=== PATIENT | female | born 1995 | race Two or more races ===

== ENCOUNTER 2017-06-20 09:16 | Emergency (ER) | payer OTHER ==
[2017-06-20 09:21] VITALS: BMI 31.3
--- NOTE | 2017-06-20 09:40 | PDOC ---
History of Present Illness - General Chief Complaint: Vaginal Bleeding Stated Complaint: vaginal bleeding, abd pain Time Seen by Provider: 06/20/17 09:35 - History of Present Illness Initial Comments: 06/20/17 09:40 21 y/o A1 L4 (with 4 c-sections, o+, rubella immune,) presents with profuse vaginal bleeding since this morning 5am, and 7/10 suprapubic pain radiating through to her back, LMP 6 days ago., started on 06/09 to 06/14. Sexually active, no conctraceptives or protection. No other complaints. Past History - Past Medical History Allergies/Adverse Reactions: Allergies Allergy/AdvReac Type Severity Reaction Status Date / Time No Known Allergies Allergy Verified 06/20/17 09:21 Home Medications: Ambulatory Orders NK [No Known Home Medication] 06/20/17 Asthma: No Cancer: No Cardiac Disorders: No COPD: No Diabetes: No HTN: No Seizures: No Thyroid Disease: No Other medical history: denies - Reproductive History Cervical CA: No Dysfunctional Uterine Bleeding: No Ectopic : No Endometrial CA: No Polycystic Ovaries: No Tubal Ligation: No - Immunization History Immunization Up to Date: Yes - Suicide/Smoking/Psychosocial Hx Smoking History: Never smoked Have you smoked in the past 12 months: No Number of Cigarettes Smoked Daily: 0 Cigars Per Day: 0 Information on smoking cessation initiated: No Hx Alcohol Use: No Drug/Substance Use Hx: No Substance Use Type: None Hx Substance Use Treatment: No Review of Systems - Review of Systems Able to Perform ROS?: Yes Is the patient limited German proficient: Yes Constitutional: No: Symptoms Reported HEENTM: No: Symptoms Reported Respiratory: No: Symptoms reported Cardiac (ROS): No: Symptoms Reported ABD/GI: Yes: See HPI : Yes: See HPI Musculoskeletal: No: Symptoms Reported Integumentary: No: Symptoms Reported Neurological: No: Symptoms reported All Other Systems: Reviewed and Negative *Physical Exam - Vital Signs Last Vital Signs Temp Pulse Resp BP Pulse Ox 98.1 F 74 18 128/76 100 06/20/17 09:19 06/20/17 09:19 06/20/17 09:19 06/20/17 09:19 06/20/17 09:19 - Physical Exam General Appearance: Yes: Nourished, Appropriately Dressed, Mild Distress HEENT: positive: EOMI, ANSON, Normal ENT Inspection Neck: negative: Tender Respiratory/Chest: positive: Lungs Clear, Normal Breath Sounds. negative: Chest Tender, Respiratory Distress Cardiovascular: positive: Regular Rhythm, Regular Rate, S1, S2 Female Pelvic Exam: positive: cervical os closed, vaginal bleeding (heavy bleeding, large clot about 0qqd2kg, vaginal cavity completely filled with hernan blood, cervix closed) Gastrointestinal/Abdominal: positive: Normal Bowel Sounds. negative: Tender Musculoskeletal: positive: Normal Inspection. negative: CVA Tenderness Integumentary: positive: Normal Color, Dry, Warm. negative: Cyanotic, Erythema , Pale, Cold, Clammy Neurologic: positive: remelt furnace expediter II-XII NML intact, Fully Oriented, Alert, Normal Mood/ Affect ED Treatment Course - LABORATORY CBC & Chemistry Diagram: 06/20/17 14:11 06/20/17 10:00 Medical Decision Making - Medical Decision Making 06/20/17 12:59 Pelvic exam reveal closed os with large quantities of blood. TVUS reveals empty uterus. 06/20/17 13:37 Patient reevaluated, unchanged pain and volume of bleeding. Repeat CBC. 06/20/17 15:24 CBC marginally decreased. Patient however still bleeding abundantly Dr Mancini will evaluate the patient in the ED 06/20/17 16:53 Dr. Mancini saw the patient and performed pelvic exam. Patient ok to be discharged but will come back in two days for follow up. *DC/Admit/Observation/Transfer Diagnosis at time of Disposition: Vaginal bleeding, Complete with delayed or excessive hemorrhage - Discharge Dispostion Disposition: HOME Condition at time of disposition: Improved Admit: No - Referrals Referrals: Janet Mancini MD [Staff Physician] - - Patient Instructions Printed Discharge Instructions: DI for Vaginal Bleeding, DI for Vaginal Bleeding During Additional Instructions: Come back to the ER in 2 days for follow up. Come sooner for any new, worsening or concerning symptoms. - Post Discharge Activity
[2017-06-20 10:06] LABS: BASOPHIL 1.1 % (0-2.0); EOSINOPHIL 6.8 % (0-4.5); MCH 24.5 pg (25.7-33.7); MCHC 32.3 g/dl (32.0-36.0); NEUTROPHILS 44.3 % (42.8-82.8); PLATELET COUNT 300 K/MM3 (134-434); RDW 17.4 % (11.6-15.6); WHITE BLOOD COUNT 6.4 K/mm3 (4.0-10.0)
[2017-06-20 10:22] LABS: INR 1.11 (0.82-1.09); PROTHROMBIN TIME (PATIENT) 12.5 SEC (9.98-11.88)
[2017-06-20 10:48] LABS: ALBUMIN 3.7 g/dl (3.4-5.0); ANION GAP 9 (8-16); CALCIUM 8.5 mg/dL (8.5-10.1); CO2 26 mmol/L (21-32); CREATININE 0.6 mg/dL (0.55-1.02); GLUCOSE,RANDOM 97 mg/dL (74-106); SGOT/AST 88 U/L (15-37); SGPT/ALT 126 U/L (12-78)
[2017-06-20 11:05] LABS: ALK PHOS 79 U/L (45-117); BILIRUBIN,TOTAL 0.3 mg/dL (0.2-1.0); TOT PROT 7.7 g/dl (6.4-8.2)
--- NOTE | 2017-06-20 11:17 | PDOC ---
Attending Attestation - HPI HPI: 06/20/17 11:24 21 year old female , with no significant past medical history, who presents to the emergency room today with 1 week of vaginal spotting and subprapubic tenderness. - Physicial Exam PE: 06/20/17 11:24 GENERAL: Awake, alert, and fully oriented, in no acute distress HEAD: No signs of trauma EYES: PERRLA, EOMI, sclera anicteric, conjunctiva clear ENT: Auricles normal inspection, hearing grossly normal, nares patent, oropharynx clear without exudates. Moist mucosa NECK: Normal ROM, supple, no lymphadenopathy, JVD, or masses LUNGS: Breath sounds equal, clear to auscultation bilaterally. No wheezes, and no crackles HEART: Regular rate and rhythm, normal S1 and S2, no murmurs, rubs or gallops ABDOMEN: +suprapubic tenderness to palpation. Soft, normoactive bowel sounds. No guarding, no rebound. No masses MECHANIC INSULATOR: As per resident note EXTREMITIES: Normal range of motion, no edema. No clubbing or cyanosis. No cords, erythema, or tenderness NEUROLOGICAL: Cranial nerves II through XII grossly intact. Normal speech, normal gait SKIN: Warm, Dry, normal turgor, no rashes or lesions noted. <Christina Finley - Last Filed: 06/20/17 11:24> - Resident Resident Name: Leif Graham - ED Attending Attestation I have performed the following: I have examined & evaluated the patient, The case was reviewed & discussed with the resident, I agree w/resident's findings & plan, Exceptions are as noted - Medical Decision Making 06/20/17 11:09 Vital Signs Temp Pulse Resp BP Pulse Ox 98.1 F 74 18 128/76 100 06/20/17 09:19 06/20/17 09:19 06/20/17 09:19 06/20/17 09:19 06/20/17 09:19 21-year-old female patient with no past medical history, , with irregular periods presents with vaginal bleeding. Patient reported one week ago having vaginal spotting. She thought this was her period but noticed that she had bleeding with clots today. And eyes lightheadedness but reports some suprapubic and lower back discomfort. Denies dysuria. Denies fevers or chills. We'll need to rule out first trimester vaginal bleeding such as ectopic versus threatened . We'll obtain a transvaginal ultrasound labs including hCG and type and screen. 06/20/17 13:14 CBC, BMP 06/20/17 10:00 06/20/17 10:00 CMP Sodium 139 mmol/L (136-145) 06/20/17 10:00 Potassium 3.7 mmol/L (3.5-5.1) 06/20/17 10:00 Chloride 104 mmol/L (98-107) 06/20/17 10:00 Carbon Dioxide 26 mmol/L (21-32) 06/20/17 10:00 Anion Gap 9 (8-16) 06/20/17 10:00 BUN 5 mg/dL (7-18) L D 06/20/17 10:00 Creatinine 0.6 mg/dL (0.55-1.02) D 06/20/17 10:00 Creat Clearance w eGFR > 60 (>60) 06/20/17 10:00 Random Glucose 97 mg/dL (74-106) 06/20/17 10:00 Calcium 8.5 mg/dL (8.5-10.1) 06/20/17 10:00 Total Bilirubin 0.3 mg/dL (0.2-1.0) D 06/20/17 10:00 AST 88 U/L (15-37) H D 06/20/17 10:00 ALT 126 U/L (12-78) H D 06/20/17 10:00 Alkaline Phosphatase 79 U/L (45-117) D 06/20/17 10:00 Total Protein 7.7 g/dl (6.4-8.2) D 06/20/17 10:00 Albumin 3.7 g/dl (3.4-5.0) D 06/20/17 10:00 Beta HCG, Quant 2793.3 mIU/ml 06/20/17 10:00 O positive. Retroflexed uterus with normal thickness of the endometrial stripe. No intrauterine gestational sac is identified. Tiny anechoic/cystic density at the junction of the lower uterine segment and cervix, measuring 6 x 4 mm likely representing a nabothian cysts. Both ovaries appear unremarkable. No IUP noted. Will need to consider either missed vs. ectopic . Pt is continuing to bleed vaginally. Will need to repeat CBC. If patient continues to bleed and/or has drop in Hct, will need to consult GAME ENGINEER for potential D&C. If the bleeding stops and the CBC is stable, pt must return to her GAME ENGINEER or to the ER in 2 days for repeat beta HCG and ultrasound. 06/20/17 15:17 Hct stable, but pt with persistent bleeding. Case discussed with DR. Shields. She will come and see and examine patient. Dispo per Dr. Shields. 06/20/17 16:25 Pt seen and examined by DR. Shields. The bleeding had slowed down significantly. Pt reports feeling better. Dr. Shields requests that she returns back in 2 days for repeat beta HCG and ultrasound. Pt instructed these instructions and she will return back to the ED. <Boris Musa - Last Filed: 06/20/17 16:25>
[2017-06-20 13:31] LABS: EOSINOPHIL 1.8 % (0-4.5); MCH 29.5 pg (25.7-33.7); MCHC 33.3 g/dl (32.0-36.0); MEAN CELL VOLUME 88.5 fl (80-96); MEAN PLT VOLUME 8.5 fl (7.5-11.1); PLATELET COUNT 283 K/MM3 (134-434); RDW 14.4 % (11.6-15.6)
[2017-06-20 13:36] LABS: URINE APPEARANCE CLOUDY; URINE BILIRUBIN NEGATIVE (NEGATIVE); URINE BLOOD 3+ (NEGATIVE); URINE COLOR RED; URINE GLUCOSE (UA) 1+ (NEGATIVE); URINE KETONE NEGATIVE (NEGATIVE); URINE NITRITE NEGATIVE (NEGATIVE); URINE UROBILINOGEN NEGATIVE mg/dL (0.2-1.0)
[2017-06-20 13:49] LABS: URINE PROTEIN 3+ (NEGATIVE)
[2017-06-20 13:54] LABS: URINE MUCUS MODERATE; URINE RBC 8640 /hpf (0-3)
[2017-06-20 14:13] LABS: WHITE BLOOD COUNT 6.3 K/mm3 (4.0-10.0)
[2017-06-20 14:14] LABS: MCH 24.1 pg (25.7-33.7); MCHC 31.8 g/dl (32.0-36.0); MEAN CELL VOLUME 75.8 fl (80-96); MEAN PLT VOLUME 8.4 fl (7.5-11.1); NEUTROPHILS 47.8 % (42.8-82.8); PLATELET COUNT 285 K/MM3 (134-434); RDW 17.3 % (11.6-15.6)
[2017-06-20 14:15] LABS: BASOPHIL 1.1 % (0-2.0); EOSINOPHIL 6.6 % (0-4.5)
[2017-06-20 17:03] VITALS: BP 113/70; PULSE 77; TEMP 98.3
[2017-06-20 18:09] LABS: URINE LEUK ESTERASE Negative (NEGATIVE)
== END 2017-06-20 17:22 | disposition home or self-care (01) ==
LOC: JER 09:16
DX: O03.6 Delayed or excessive hemorrhage following complete or unspecified spontaneous abortion (principal)
CPT/HCPCS: 36415; 76830-TC; 80053; 81003; 81015; 84702; 84703; 85025; 85610; 85730; 86850; 86900; 86901; 99283-25

== ENCOUNTER 2017-06-23 10:22 | Emergency (ER) | payer OTHER ==
[2017-06-23 10:35] VITALS: BP 118/84; PULSE 91; TEMP 98.2; BMI 26.2
--- NOTE | 2017-06-23 14:21 | PDOC ---
History of Present Illness - General Chief Complaint: [facility] [place] St[place] Complaint: Beta HCG Time Seen by Provider: 06/23/17 10:52 History Source: Patient Exam Limitations: No Limitations - History of Present Illness Initial Comments: 06/23/17 14:15 21 yr female LMP 06/09/17 came to ER with cramping and vaginal bleeding 2 days ago dx with missed AB. Pt here today for repeat beta and follow up. Pt states the bleeding is less, no more clots, has mild cramping, no nv no back pain or fever. Severity: mild Past History - Past Medical History Allergies/Adverse Reactions: Allergies Allergy/AdvReac Type Severity Reaction Status Date / Time No Known Allergies Allergy Verified 06/23/17 10:34 Home Medications: Ambulatory Orders NK [No Known Home Medication] 06/20/17 Asthma: No Cancer: No Cardiac Disorders: No COPD: No Diabetes: No HTN: No Seizures: No Thyroid Disease: No - Reproductive History LMP Normal: No Is Patient Now?: Yes (#): 5 Para: 4 Cervical CA: No Dysfunctional Uterine Bleeding: No Ectopic : No Endometrial CA: No Polycystic Ovaries: No Tubal Ligation: No - Immunization History Immunization Up to Date: Yes - Suicide/Smoking/Psychosocial Hx Smoking History: Never smoked Have you smoked in the past 12 months: No Number of Cigarettes Smoked Daily: 0 Cigars Per Day: 0 Information on smoking cessation initiated: No Hx Alcohol Use: No Drug/Substance Use Hx: No Substance Use Type: None Hx Substance Use Treatment: No Review of Systems - Review of Systems Able to Perform ROS?: Yes Is the patient limited Kyrgyz proficient: No Constitutional: No: Symptoms Reported HEENTM: No: Symptoms Reported Respiratory: No: Symptoms reported Cardiac (ROS): No: Symptoms Reported ABD/GI: No: Symptoms Reported : Yes: Symptoms Reported *Physical Exam - Vital Signs Last Vital Signs Temp Pulse Resp BP Pulse Ox 98.2 F 91 H 18 118/84 100 06/23/17 10:25 06/23/17 10:25 06/23/17 10:25 06/23/17 10:25 06/23/17 10:25 - Physical Exam General Appearance: Yes: Nourished, Appropriately Dressed HEENT: positive: EOMI, ANSON Neck: positive: Supple Respiratory/Chest: positive: Lungs Clear, Normal Breath Sounds Cardiovascular: positive: Regular Rhythm, Regular Rate Gastrointestinal/Abdominal: positive: Normal Bowel Sounds, Soft, Tenderness ( mild suprapubic tenderness ). negative: Tender Extremity: positive: Normal Capillary Refill, Normal Inspection, Normal Range of Motion Integumentary: positive: Normal Color, Dry, Warm Neurologic: positive: Fully Oriented, Alert, Normal Mood/Affect, Normal Response , Motor Strength 11/26 ED Treatment Course - LABORATORY CBC & Chemistry Diagram: 06/23/17 14:55 06/23/17 14:55 - ADDITIONAL ORDERS Additional order review: Laboratory Results 06/23/17 10:52 Beta HCG, Quant 9043.7 - RADIOLOGY Radiology Studies Ordered: Category Date Time Status TRANSVAGINAL US PREG [US] Stat Ultrasound 06/23/17 11:53 Completed - Consult/PCP Case discussed with personal care physician: Colby Berger Medical Decision Making - Medical Decision Making 06/23/17 14:18 cc: vaginal bleeding mild cramping seen in ER 06/20/17 for evaluation of cramping and vaginal bleeding with clots, pt was found to be US showed no IUP pt here for follow up states bleeding has improved , has mild cramping will repeat labs and US type and screen 06/23/17 14:19 paged to discuss the results 06/23/17 14:40 discussed case with would like blood work repeated and labs \will follow the repeat labwork and plan accordingly 06/23/17 16:20 is reviewing the US with and will call me back labs reviewed as well 06/23/17 18:12 seen and examined in the ER by pt to be discharge and seen in the clinic on Tuesday06/23/17 18:15 pt has been given the dc instructions all questions asked and answered pt understands via japanese translation the follow up plan of care *DC/Admit/Observation/Transfer Diagnosis at time of Disposition: Threatened - Discharge Dispostion Disposition: HOME Condition at time of disposition: Good - Referrals Referrals: Colby Berger MD [Staff Physician] - - Patient Instructions Additional Instructions: follow up TuesdayJune 27 in the clinic listed below bring copies of your tests done today with you avoid any sexual activity any heavy lifting or bending return to ER for any severe pain, heavy vaginal bleeding or any other concerns seguimiento el LUNES 4 de diciembre en la clnica que se detalla a continuacin traiga copias de shelley pruebas hechas hoy con usted evitar cualquier actividad sexual, levantar objetos pesados o doblarse regresar a la rangel de emergencias por cualquier dolor intenso, hemorragia vaginal abundante o cualquier otra inquietud - Post Discharge Activity
[2017-06-23 15:03] LABS: BASOPHIL 0.8 % (0-2.0); EOSINOPHIL 4.8 % (0-4.5); MCH 24.6 pg (25.7-33.7); MCHC 32.3 g/dl (32.0-36.0); MEAN CELL VOLUME 76.2 fl (80-96); MEAN PLT VOLUME 8.6 fl (7.5-11.1); NEUTROPHILS 52.6 % (42.8-82.8); PLATELET COUNT 258 K/MM3 (134-434); RDW 17.1 % (11.6-15.6); WHITE BLOOD COUNT 6.1 K/mm3 (4.0-10.0)
[2017-06-23 15:13] LABS: INR 1.16 (0.82-1.09); PROTHROMBIN TIME (PATIENT) 13.1 SEC (9.98-11.88)
[2017-06-23 15:16] LABS: ACTIVATED PTT 28.4 SECONDS (26.9-34.4)
[2017-06-23 15:23] LABS: ALBUMIN 3.4 g/dl (3.4-5.0); ANION GAP 6 (8-16); CALCIUM 8.1 mg/dL (8.5-10.1); CO2 25 mmol/L (21-32); GLUCOSE,RANDOM 102 mg/dL (74-106)
[2017-06-23 15:25] LABS: CREATININE 0.5 mg/dL (0.55-1.02); SGOT/AST 93 U/L (15-37); SGPT/ALT 155 U/L (12-78)
[2017-06-23 15:27] LABS: ALK PHOS 66 U/L (45-117); BILIRUBIN,TOTAL 0.4 mg/dL (0.2-1.0); TOT PROT 7.4 g/dl (6.4-8.2)
== END 2017-06-23 18:21 | disposition home or self-care (01) ==
LOC: JERFT 10:22
DX: O26.891 Other specified pregnancy related conditions, first trimester (principal); O20.0 Threatened abortion; Z3A.00 Weeks of gestation of pregnancy not specified
CPT/HCPCS: 36415; 76817-TC; 80053; 84702; 85025; 85610; 85730; 86850; 86900; 86901; 99281-25

== ENCOUNTER 2017-07-04 20:48 | Emergency (ER) | payer OTHER ==
--- NOTE | 2017-07-04 20:54 | PDOC ---
Rapid Medical Evaluation Chief Complaint: Vaginal Bleeding Time Seen by Provider: 07/04/17 20:51 Medical Evaluation: Allergies Allergy/AdvReac Type Severity Reaction Status Date / Time No Known Allergies Allergy Verified 06/23/17 10:34 07/04/17 20:51 The patient presents with a chief complaint of: vaginal bleeding x1 day. 2016: LMP + urine test in this ER. minimal vaginal bleeding I have performed a brief in-person evaluation of this patient; Pertinent physical exam findings: Patient alert ox3. good cap refill. I have ordered the following: beta hcg, cbc, type and screen The patient will proceed to the ED for further evaluation. 07/04/17 20:54
[2017-07-04 20:55] VITALS: BP 109/70; PULSE 81; TEMP 98.7; BMI 29.9
[2017-07-04 21:11] LABS: BASOPHIL 0.8 % (0-2.0); EOSINOPHIL 5.7 % (0-4.5); MCH 23.4 pg (25.7-33.7); MCHC 31.4 g/dl (32.0-36.0); MEAN CELL VOLUME 74.7 fl (80-96); MEAN PLT VOLUME 8.5 fl (7.5-11.1); NEUTROPHILS 51.2 % (42.8-82.8); PLATELET COUNT 300 K/MM3 (134-434); RDW 16.9 % (11.6-15.6); WHITE BLOOD COUNT 6.9 K/mm3 (4.0-10.0)
[2017-07-04 21:13] LABS: URINE APPEARANCE CLEAR; URINE BILIRUBIN NEGATIVE (NEGATIVE); URINE BLOOD 3+ (NEGATIVE); URINE COLOR STRAW; URINE GLUCOSE (UA) NEGATIVE (NEGATIVE); URINE KETONE NEGATIVE (NEGATIVE); URINE LEUK ESTERASE NEGATIVE (NEGATIVE); URINE NITRITE NEGATIVE (NEGATIVE); URINE PROTEIN NEGATIVE (NEGATIVE); URINE UROBILINOGEN NEGATIVE mg/dL (0.2-1.0)
[2017-07-04 21:16] LABS: URINE RBC 2 /hpf (0-3); URINE WBC 1 /hpf (3-5)
[2017-07-04 21:32] LABS: INR 1.19 (0.82-1.09); PROTHROMBIN TIME (PATIENT) 13.4 SEC (9.98-11.88)
[2017-07-04 23:05] LABS: URINE LEUK ESTERASE NEGATIVE (NEGATIVE)
--- NOTE | 2017-07-05 00:11 | PDOC ---
History of Present Illness <Terri Paul - Last Filed: 07/05/17 00:13> - History of Present Illness Initial Comments: 07/05/17 00:15 The patient is a 21 year old female, , with no significant past medical history, who presents to the emergency department with persistent vaginal bleeding. The patient was seen in the ED for similar complaint 2 weeks ago. The patient states her LMP was in April and presents for a repeat beta. She denies chest pain, shortness of breath, headache and dizziness. She denies fever, chills, nausea, vomit, diarrhea and constipation. She denies dysuria, frequency, urgency and hematuria. Allergies: NKDA The patient follows the [facility] at [address] [place] [address]. <Patricia Morfin - Last Filed: 07/05/17 00:22> - General Chief Complaint: Vaginal Bleeding Stated Complaint: VAGINAL BLEEDING Time Seen by Provider: 07/04/17 20:51 Past History - Past Medical History Asthma: No Cancer: No Cardiac Disorders: No COPD: No Diabetes: No HTN: No Seizures: No Thyroid Disease: No - Reproductive History (#): 5 Para: 4 Cervical CA: No Dysfunctional Uterine Bleeding: No Ectopic : No Endometrial CA: No Polycystic Ovaries: No Tubal Ligation: No - Immunization History Immunization Up to Date: Yes - Suicide/Smoking/Psychosocial Hx Smoking History: Never smoked Have you smoked in the past 12 months: No Number of Cigarettes Smoked Daily: 0 Cigars Per Day: 0 Hx Alcohol Use: No Drug/Substance Use Hx: No Substance Use Type: None Hx Substance Use Treatment: No <Terri Paul - Last Filed: 07/05/17 00:13> <Patricia Morfin - Last Filed: 07/05/17 00:22> - Past Medical History Allergies/Adverse Reactions: Allergies Allergy/AdvReac Type Severity Reaction Status Date / Time No Known Allergies Allergy Verified 07/04/17 20:55 Home Medications: Ambulatory Orders NK [No Known Home Medication] 06/20/17 Review of Systems - Review of Systems Able to Perform ROS?: Yes Comments:: 07/05/17 00:17 CONSTITUTIONAL: Absent: fever, chills, diaphoresis, generalized weakness, malaise, loss of appetite HEENT: Absent: rhinorrhea, nasal congestion, throat pain, throat swelling, difficulty swallowing, mouth swelling, ear pain, eye pain, visual Changes CARDIOVASCULAR: Absent: chest pain, syncope, palpitations, irregular heart rate, lightheadedness , peripheral edema RESPIRATORY: Absent: cough, shortness of breath, dyspnea with exertion, orthopnea, wheezing, stridor, hemoptysis GASTROINTESTINAL: Absent: abdominal pain, abdominal distension, nausea, vomiting, diarrhea, constipation, melena, hematochezia GENITOURINARY: (+) vaginal bleeding in . Absent: dysuria, frequency, urgency, hesitancy, hematuria, flank pain, genital pain MUSCULOSKELETAL: Absent: myalgia, arthralgia, joint swelling SKIN: Absent: rash, itching, pallor HEMATOLOGIC/IMMUNOLOGIC: Absent: easy bleeding, easy bruising, lymphadenopathy, frequent infections ENDOCRINE: Absent: unexplained weight gain, unexplained weight loss, heat intolerance, cold intolerance NEUROLOGIC: Absent: headache, focal weakness or paresthesias, dizziness, unsteady gait, seizure, mental status changes, bladder or bowel incontinence PSYCHIATRIC: Absent: anxiety, depression, suicidal or homicidal ideation, hallucinations. <Patricia Morfin - Last Filed: 07/05/17 00:22> *Physical Exam - Vital Signs Last Vital Signs Temp Pulse Resp BP Pulse Ox 98.7 F 81 18 109/70 100 07/04/17 20:51 07/04/17 20:51 07/04/17 20:51 07/04/17 20:51 07/04/17 20:51 <Terri Paul - Last Filed: 07/05/17 00:13> - Vital Signs Last Vital Signs Temp Pulse Resp BP Pulse Ox 98.7 F 81 18 109/70 100 07/04/17 20:51 07/04/17 20:51 07/04/17 20:51 07/04/17 20:51 07/04/17 20:51 - Physical Exam Comments: 07/05/17 00:17 GENERAL: Well developed, well nourished. Awake and alert. No acute distress. HEENT: Normocephalic, atraumatic. PERRLA, EOMI. No conjunctival pallor. Sclera are non- icteric. Moist mucous membranes. Oropharynx is clear. NECK: Supple. Full ROM. No JVD. Carotid pulses 2+ and symmetric, without bruits. No thyromegaly. No lymphadenopathy. CARDIOVASCULAR: Regular rate and rhythm. No murmurs, rubs, or gallops. Distal pulses are 2+ and symmetric. PULMONARY: No evidence of respiratory distress. Lungs clear to auscultation bilaterally. No wheezing, rales or rhonchi. ABDOMINAL: Soft. Non-tender. Non-distended. No rebound or guarding. No organomegaly. Normoactive bowel sounds. MUSCULOSKELETAL Normal range of motion at all joints. No bony deformities or tenderness. No CVA tenderness. EXTREMITIES: No cyanosis. No clubbing. No edema. No calf tenderness. SKIN: Warm and dry. Normal capillary refill. No rashes. No jaundice. NEUROLOGICAL: Alert, awake, appropriate. Cranial nerves 2-12 intact. Normoreflexic in the upper and lower extremities. Normal speech. Toes are down-going bilaterally. Gait is normal without ataxia. PSYCHIATRIC: Cooperative. Good eye contact. Appropriate mood and affect. <Patricia Morfin - Last Filed: 07/05/17 00:22> ED Treatment Course - LABORATORY CBC & Chemistry Diagram: 07/04/17 20:55 - ADDITIONAL ORDERS Additional order review: Laboratory Results 07/04/17 07/04/17 07/04/17 20:55 20:55 20:55 PT with INR INR Beta HCG, Quant 68433.6 Urine Color Straw Urine Appearance Clear Urine pH 6.0 Ur Specific [place] 1.003 Urine Protein Negative Urine Glucose (UA) Negative Urine Ketones Negative Urine Blood 3+ H Urine Nitrite Negative Urine Bilirubin Negative Urine Urobilinogen Negative Ur Leukocyte Esterase Negative Urine WBC (Auto) 1 Urine RBC (Auto) 2 Ur Epithelial Cells Rare Blood Type O POSITIVE Antibody Screen Negative 07/04/17 20:55 PT with INR 13.40 H INR 1.19 H Beta HCG, Quant Urine Color Urine Appearance Urine pH Ur Specific [place] Urine Protein Urine Glucose (UA) Urine Ketones Urine Blood Urine Nitrite Urine Bilirubin Urine Urobilinogen Ur Leukocyte Esterase Urine WBC (Auto) Urine RBC (Auto) Ur Epithelial Cells Blood Type Antibody Screen 07/04/17 20:55 RBC 3.98 MCV 74.7 L MCHC 31.4 L RDW 16.9 H MPV 8.5 Neutrophils % 51.2 Lymphocytes % 35.8 Monocytes % 6.5 Eosinophils % 5.7 H Basophils % 0.8 - RADIOLOGY Radiology Studies Ordered: Category Date Time Status <14WKS US [US] Stat Ultrasound 07/04/17 22:29 Completed <Terri Paul - Last Filed: 07/05/17 00:13> - LABORATORY CBC & Chemistry Diagram: 07/04/17 20:55 - ADDITIONAL ORDERS Additional order review: Laboratory Results 07/04/17 07/04/17 07/04/17 20:55 20:55 20:55 PT with INR INR Beta HCG, Quant 88985.6 Urine Color Straw Urine Appearance Clear Urine pH 6.0 Ur Specific [place] 1.003 Urine Protein Negative Urine Glucose (UA) Negative Urine Ketones Negative Urine Blood 3+ H Urine Nitrite Negative Urine Bilirubin Negative Urine Urobilinogen Negative Ur Leukocyte Esterase Negative Urine WBC (Auto) 1 Urine RBC (Auto) 2 Ur Epithelial Cells Rare Blood Type O POSITIVE Antibody Screen Negative 07/04/17 20:55 PT with INR 13.40 H INR 1.19 H Beta HCG, Quant Urine Color Urine Appearance Urine pH Ur Specific [place] Urine Protein Urine Glucose (UA) Urine Ketones Urine Blood Urine Nitrite Urine Bilirubin Urine Urobilinogen Ur Leukocyte Esterase Urine WBC (Auto) Urine RBC (Auto) Ur Epithelial Cells Blood Type Antibody Screen 07/04/17 20:55 RBC 3.98 MCV 74.7 L MCHC 31.4 L RDW 16.9 H MPV 8.5 Neutrophils % 51.2 Lymphocytes % 35.8 Monocytes % 6.5 Eosinophils % 5.7 H Basophils % 0.8 <Patricia Morfin - Last Filed: 07/05/17 00:22> Medical Decision Making - Medical Decision Making 07/05/17 00:13 41-year-old female presents with some vaginal bleeding. Beta-hCG was 34,000. Blood type is 0 positive. Transvaginal ultrasound shows single live intrauterine 7 weeks 1 day gestational age, heart rate 1:30, ovaries are normal in size, no free fluid Impression threatened AB Plan patient to keep her follow-up appointment at [facility] [place] [facility]. <Terri Paul - Last Filed: 07/05/17 00:13> *DC/Admit/Observation/Transfer <Terri Paul - Last Filed: 07/05/17 00:13> - Attestations Scribe Attestion: 07/05/17 00:17 Documentation prepared by Patricia Morfin, acting as medical director occupational health for Terri Paul MD <Patricia Morfin - Last Filed: 07/05/17 00:22> Diagnosis at time of Disposition: Threatened - Discharge Dispostion Disposition: HOME Condition at time of disposition: Stable - Patient Instructions Printed Discharge Instructions: DI for Threatened Additional Instructions: please follow up with your nutrition partner
== END 2017-07-05 00:18 | disposition home or self-care (01) ==
LOC: JER 20:48
DX: O26.891 Other specified pregnancy related conditions, first trimester (principal); Z3A.01 Less than 8 weeks gestation of pregnancy; O20.0 Threatened abortion
CPT/HCPCS: 36415; 76801-TC; 81003; 81015; 84702; 85025; 85610; 86850; 86900; 86901; 99283-25

== ENCOUNTER 2017-08-02 14:41 | Emergency (ER) | payer OTHER ==
[2017-08-02 15:00] VITALS: BP 126/72; PULSE 76; TEMP 98.6; BMI 27.9
--- NOTE | 2017-08-02 15:03 | PDOC ---
Rapid Medical Evaluation Chief Complaint: Vaginal Bleeding Time Seen by Provider: 08/02/17 14:59 Medical Evaluation: Allergies Allergy/AdvReac Type Severity Reaction Status Date / Time No Known Allergies Allergy Verified 07/04/17 20:55 08/02/17 14:59 The patient presents with a chief complaint of: Heavy vaginal bleeding, 3 months . . Used 4 pads in 2 hours. Admits to lower abdominal tenderness. I have performed a brief in-person evaluation of this patient; Pertinent physical exam findings: TTP of the suprapubic region I have ordered the following: CBC, CMP, PT/INR, Beta HCG, UA, type and screen, transvaginal US The patient will proceed to the ED for further evaluation.
[2017-08-02 16:11] LABS: BASO % 0.5 % (0-2.0); EOS % 3.6 % (0-4.5); HEMATOCRIT 26.6 % (32.4-45.2); HEMOGLOBIN 8.5 GM/dL (10.7-15.3); LYMPH % 23.7 % (8-40); MCH 22.8 pg (25.7-33.7); MCHC 31.9 g/dl (32.0-36.0); MEAN CELL VOLUME 71.6 fl (80-96); MONO % 6.1 % (3.8-10.2); NEUT % 66.1 % (42.8-82.8); PLATELET COUNT 261 K/MM3 (134-434); RBC 3.71 M/mm3 (3.60-5.2); RDW 17.2 % (11.6-15.6); WHITE BLOOD COUNT 5.8 K/mm3 (4.0-10.0)
[2017-08-02 16:13] LABS: URINE APPEARANCE CLEAR; URINE BILIRUBIN NEGATIVE (NEGATIVE); URINE BLOOD 3+ (NEGATIVE); URINE COLOR COLORLESS; URINE GLUCOSE (UA) NEGATIVE (NEGATIVE); URINE KETONE NEGATIVE (NEGATIVE); URINE LEUK ESTERASE NEGATIVE (NEGATIVE); URINE NITRITE NEGATIVE (NEGATIVE); URINE PROTEIN NEGATIVE (NEGATIVE); URINE UROBILINOGEN NEGATIVE mg/dL (0.2-1.0)
[2017-08-02 16:23] LABS: INR 1.18 (0.82-1.09); PROTHROMBIN TIME (PATIENT) 13.3 SEC (9.98-11.88)
[2017-08-02 16:34] LABS: ALBUMIN 3.3 g/dl (3.4-5.0); ANION GAP 11 (8-16); BLOOD UREA NITROGEN 5 mg/dL (7-18); CALCIUM 8.6 mg/dL (8.5-10.1); CHLORIDE 104 mmol/L (98-107); CO2 21 mmol/L (21-32); CREATININE 0.5 mg/dL (0.55-1.02); GLUCOSE,RANDOM 89 mg/dL (74-106); POTASSIUM 3.4 mmol/L (3.5-5.1); SGOT/AST 24 U/L (15-37); SGPT/ALT 38 U/L (12-78); SODIUM 136 mmol/L (136-145)
[2017-08-02 16:52] LABS: ALK PHOS 57 U/L (45-117); BILIRUBIN,TOTAL 0.3 mg/dL (0.2-1.0); TOT PROT 7.1 g/dl (6.4-8.2)
[2017-08-02 17:07] LABS: EPI CELLS RARE /HPF (FEW); URINE BACTERIA RARE /hpf (NONE SEEN)
--- NOTE | 2017-08-02 19:23 | PDOC ---
History of Present Illness <Terri Paul - Last Filed: 08/02/17 19:58> - History of Present Illness Initial Comments: 08/02/17 20:21 The patient is a 21 year old faroese-speaking female () who presents to the ED for heavy vaginal bleeding. She states she went through multiple pads. She is also complaining of lower abdominal tenderness. Patient is 3 months . TELEVISION ACTOR: Eloisa Le <Jannet Cross - Last Filed: 08/02/17 20:26> - General Chief Complaint: Vaginal Bleeding Stated Complaint: 3 MONTHS /Vaginal Bleeding Time Seen by Provider: 08/02/17 14:59 Past History - Past Medical History Asthma: No Cancer: No Cardiac Disorders: No COPD: No Diabetes: No HTN: No Seizures: No Thyroid Disease: No - Reproductive History Is Patient Now?: Yes (#): 6 Para: 4 Cervical CA: No Dysfunctional Uterine Bleeding: No Ectopic : No Endometrial CA: No Polycystic Ovaries: No Tubal Ligation: No Spontaneous : 1 - Immunization History Immunization Up to Date: Yes - Suicide/Smoking/Psychosocial Hx Smoking History: Never smoked Have you smoked in the past 12 months: No Number of Cigarettes Smoked Daily: 0 Cigars Per Day: 0 Information on smoking cessation initiated: No Hx Alcohol Use: No Drug/Substance Use Hx: No Substance Use Type: None Hx Substance Use Treatment: No <Terri Paul - Last Filed: 08/02/17 19:58> <Jannet Cross - Last Filed: 08/02/17 20:26> - Past Medical History Allergies/Adverse Reactions: Allergies Allergy/AdvReac Type Severity Reaction Status Date / Time No Known Allergies Allergy Verified 08/02/17 20:18 Home Medications: Ambulatory Orders NK [No Known Home Medication] 06/20/17 Review of Systems - Review of Systems Comments:: 08/02/17 20:21 CONSTITUTIONAL: Absent: fever, no chills, no fatigue EYES: Absent: visual changes ENT: Absent: ear pain, no sore throat CARDIOVASCULAR: Absent: chest pain, no palpitations RESPIRATORY: Absent: cough, no SOB GI: Present: lower abdominal pain Absent: no nausea, no vomiting, no constipation, no diarrhea GENITOURINARY: Absent: dysuria, no frequency, no hematuria TELEVISION ACTOR: Present: heavy vaginal bleeding MUSCULOSKELETAL: Absent: back pain, no arthralgia, no myalgia SKIN: Absent: rash NEURO: Absent: headache <TayJannet bettencourt - Last Filed: 08/02/17 20:26> *Physical Exam - Vital Signs Last Vital Signs Temp Pulse Resp BP Pulse Ox 98.6 F 76 18 126/72 100 08/02/17 14:58 08/02/17 14:58 08/02/17 14:58 08/02/17 14:58 08/02/17 14:58 <Terri Paul - Last Filed: 08/02/17 19:58> - Vital Signs Last Vital Signs Temp Pulse Resp BP Pulse Ox 98.6 F 76 18 126/72 100 08/02/17 14:58 08/02/17 14:58 08/02/17 14:58 08/02/17 14:58 08/02/17 14:58 - Physical Exam Comments: 08/02/17 20:20 GENERAL: Well-appearing, well-nourished. No apparent distress. HEENT: Normocephalic, atraumatic. PERRL, EOM intact. CARDIOVASCULAR: Normal S1, S2. Regular rate and rhythm. PULMONARY: Clear to auscultation bilaterally. ABDOMEN: Soft, non-distended, mild suprapubic tenderness to palpation EXTREMITIES: Normal ROM in all four extremities. No gross deformities. SKIN: Warm, dry. No rash NEUROLOGICAL: No focal neurological deficits. <Jannet Cross - Last Filed: 08/02/17 20:26> ED Treatment Course - LABORATORY CBC & Chemistry Diagram: 08/02/17 15:33 08/02/17 15:33 - ADDITIONAL ORDERS Additional order review: Laboratory Results 08/02/17 08/02/17 08/02/17 15:37 15:33 15:33 PT with INR INR Sodium 136 Potassium 3.4 L Chloride 104 Carbon Dioxide 21 Anion Gap 11 BUN 5 L D Creatinine 0.5 L Creat Clearance w eGFR > 60 Random Glucose 89 Calcium 8.6 Total Bilirubin 0.3 D AST 24 D ALT 38 D Alkaline Phosphatase 57 Total Protein 7.1 Albumin 3.3 L Beta HCG, Quant 86496.1 Urine Color Colorless Urine Appearance Clear Urine pH 6.0 Ur Specific [place] 1.003 Urine Protein Negative Urine Glucose (UA) Negative Urine Ketones Negative Urine Blood 3+ H Urine Nitrite Negative Urine Bilirubin Negative Urine Urobilinogen Negative Ur Leukocyte Esterase Negative Urine WBC (Auto) 1 Urine RBC (Auto) 6 Ur Epithelial Cells Rare Urine Bacteria Rare Blood Type O POSITIVE Antibody Screen Negative 08/02/17 15:33 PT with INR 13.30 H INR 1.18 H Sodium Potassium Chloride Carbon Dioxide Anion Gap BUN Creatinine Creat Clearance w eGFR Random Glucose Calcium Total Bilirubin AST ALT Alkaline Phosphatase Total Protein Albumin Beta HCG, Quant Urine Color Urine Appearance Urine pH Ur Specific [place] Urine Protein Urine Glucose (UA) Urine Ketones Urine Blood Urine Nitrite Urine Bilirubin Urine Urobilinogen Ur Leukocyte Esterase Urine WBC (Auto) Urine RBC (Auto) Ur Epithelial Cells Urine Bacteria Blood Type Antibody Screen 08/02/17 15:33 RBC 3.71 MCV 71.6 L MCHC 31.9 L RDW 17.2 H MPV 9.0 Neutrophils % 66.1 D Lymphocytes % 23.7 D Monocytes % 6.1 Eosinophils % 3.6 Basophils % 0.5 <Terri Paul - Last Filed: 08/02/17 19:58> - LABORATORY CBC & Chemistry Diagram: 08/02/17 15:33 08/02/17 15:33 - ADDITIONAL ORDERS Additional order review: Laboratory Results 08/02/17 08/02/17 08/02/17 15:37 15:33 15:33 PT with INR INR Sodium 136 Potassium 3.4 L Chloride 104 Carbon Dioxide 21 Anion Gap 11 BUN 5 L D Creatinine 0.5 L Creat Clearance w eGFR > 60 Random Glucose 89 Calcium 8.6 Total Bilirubin 0.3 D AST 24 D ALT 38 D Alkaline Phosphatase 57 Total Protein 7.1 Albumin 3.3 L Beta HCG, Quant 50724.1 Urine Color Colorless Urine Appearance Clear Urine pH 6.0 Ur Specific [place] 1.003 Urine Protein Negative Urine Glucose (UA) Negative Urine Ketones Negative Urine Blood 3+ H Urine Nitrite Negative Urine Bilirubin Negative Urine Urobilinogen Negative Ur Leukocyte Esterase Negative Urine WBC (Auto) 1 Urine RBC (Auto) 6 Ur Epithelial Cells Rare Urine Bacteria Rare Blood Type O POSITIVE Antibody Screen Negative 08/02/17 15:33 PT with INR 13.30 H INR 1.18 H Sodium Potassium Chloride Carbon Dioxide Anion Gap BUN Creatinine Creat Clearance w eGFR Random Glucose Calcium Total Bilirubin AST ALT Alkaline Phosphatase Total Protein Albumin Beta HCG, Quant Urine Color Urine Appearance Urine pH Ur Specific [place] Urine Protein Urine Glucose (UA) Urine Ketones Urine Blood Urine Nitrite Urine Bilirubin Urine Urobilinogen Ur Leukocyte Esterase Urine WBC (Auto) Urine RBC (Auto) Ur Epithelial Cells Urine Bacteria Blood Type Antibody Screen 08/02/17 15:33 RBC 3.71 MCV 71.6 L MCHC 31.9 L RDW 17.2 H MPV 9.0 Neutrophils % 66.1 D Lymphocytes % 23.7 D Monocytes % 6.1 Eosinophils % 3.6 Basophils % 0.5 - RADIOLOGY Radiograph Interpretation: 08/02/17 20:22 Trans vag US Findings: The exam demonstrates a single viable intrauterine gestation at approximately 11 weeks 5 days on the basis of crown-rump length heart rate 154bpm Amniotic fluid volume appear unremarkable A small subchorionic hemorrhage is noted. Reported by: Reza Castellanos MD 08/02/17 20:25 <Jannet Cross - Last Filed: 08/02/17 20:26> *DC/Admit/Observation/Transfer <Terri Paul - Last Filed: 08/02/17 19:58> - Attestations Scribe Attestion: 08/02/17 20:26 Documentation prepared by Jannet Cross, acting as certified medical coding specialist for Terri Paul MD. <Jannet Cross - Last Filed: 08/02/17 20:26> Diagnosis at time of Disposition: Threatened - Discharge Dispostion Disposition: HOME Condition at time of disposition: Stable - Patient Instructions Printed Discharge Instructions: DI for Threatened , DI for Vaginal Bleeding During Additional Instructions: please follow up this week with your dermatology procedural physician
== END 2017-08-02 20:19 | disposition home or self-care (01) ==
LOC: JER 14:41
DX: O26.891 Other specified pregnancy related conditions, first trimester (principal); O20.0 Threatened abortion; Z3A.11 11 weeks gestation of pregnancy
CPT/HCPCS: 36415; 76801-TC; 80053; 81003; 81015; 84702; 85025; 85610; 86850; 86900; 86901; 99284-25

== ENCOUNTER 2019-06-16 05:20 | Emergency (ER) | payer OTHER ==
[2019-06-16 05:39] VITALS: BP 120/78; PULSE 68; TEMP 98.2; BMI 29.7
--- NOTE | 2019-06-16 05:55 | PDOC ---
History of Present Illness - General Chief Complaint: Foreign Body (FB) Stated Complaint: EARACHE Time Seen by Provider: 06/16/19 05:40 History Source: Patient Exam Limitations: Language Barrier - History of Present Illness Initial Comments: Awilda Dietz is a 23 yo F who denies having any pmh who presents to the [facility] er stating she feels like she has a bug in her left ear. She thought something crawled into her ear earlier today, and it would not leave. She denies having any pain in her ear or discharge. She also denies having experienced any fevers, ear discharge, mouth or face pain. The patient states she has never had a bug in her ear before. PCP: Maribel Espino PSH: None reported Allergies: NKA, NKDA Social Hx: Denies smoking, drinking, or other substance usage. Past History - Past Medical History Allergies/Adverse Reactions: Allergies Allergy/AdvReac Type Severity Reaction Status Date / Time No Known Allergies Allergy Verified 06/16/19 05:37 Home Medications: Ambulatory Orders NK [No Known Home Medication] 06/16/19 Asthma: No Cancer: No Cardiac Disorders: No COPD: No Diabetes: No HTN: No Seizures: No Thyroid Disease: No - Reproductive History (#): 6 Para: 4 Cervical CA: No Dysfunctional Uterine Bleeding: No Ectopic : No Endometrial CA: No Polycystic Ovaries: No Tubal Ligation: No Spontaneous : 1 - Immunization History Immunization Up to Date: Yes - Psycho Social/Smoking Cessation Hx Smoking History: Never smoked Have you smoked in the past 12 months: No Number of Cigarettes Smoked Daily: 0 Cigars Per Day: 0 Hx Alcohol Use: No Drug/Substance Use Hx: No Substance Use Type: None Hx Substance Use Treatment: No Review of Systems - Review of Systems Able to Perform ROS?: Yes Comments:: CONSTITUTIONAL: Absent: fever, no chills, no fatigue EYES: Absent: visual changes ENT: Absent: ear pain, no sore throat CARDIOVASCULAR: Absent: chest pain, no palpitations RESPIRATORY: Absent: cough, no SOB GI: Absent: abdominal pain, no nausea, no vomiting, no constipation, no diarrhea GENITOURINARY: Absent: dysuria, no frequency, no hematuria MUSKULOSKELETAL: Absent: back pain, no arthralgia, no myalgia SKIN: Absent: rash NEURO: Absent: headache *Physical Exam - Vital Signs Last Vital Signs Temp Pulse Resp BP Pulse Ox 98.2 F 68 18 120/78 100 06/16/19 05:23 06/16/19 05:23 06/16/19 05:23 06/16/19 05:23 06/16/19 05:23 - Physical Exam Comments: GENERAL: Well-appearing, well-nourished. No apparent distress. LEFT EAR: there is no foreign body, no ear erythema, the canal is normal in appearance, there is no pain upon insertion of the speculum HEENT: Normocephalic, atraumatic. PERRL, EOM intact. CARDIOVASCULAR: Normal S1, S2. Regular rate and rhythm. PULMONARY: No evidence of respiratory distress. Lungs clear to auscultation bilaterally. No wheezing, rales or rhonchi. ABDOMEN: Soft, non-distended, non-tender. EXTREMITIES: Normal ROM in all four extremities. No gross deformities. SKIN: Warm, dry. No rash NEUROLOGICAL: No focal neurological deficits. Medical Decision Making - Medical Decision Making Awilda Dietz is a 23 yo F who denies having any pmh who presents to the [facility] er stating she feels like she has a bug in her left ear. She thought something crawled into her ear earlier today, and it would not leave. She denies having any pain in her ear or discharge. She also denies having experienced any fevers, ear discharge, mouth or face pain. The patient states she has never had a bug in her ear before. Vital Signs Temp Pulse Resp BP Pulse Ox 98.2 F 68 18 120/78 100 06/16/19 05:23 06/16/19 05:23 06/16/19 05:23 06/16/19 05:23 06/16/19 05:23 MDM: Patient presents stating she thinks a keller crawled into her ear. Upon examination there is nothing in her ear canal and her exam is completely normal. Plan: DC Discharge - Discharge Information Problems reviewed: Yes Clinical Impression/Diagnosis: Plugged feeling in ear Qualifiers: Laterality: left Qualified Code(s): H93.8X2 - Other specified disorders of left ear Condition: Improved Disposition: HOME - Admission No - Follow up/Referral Referrals: [facility] – [place] [facility] [Provider Group] - Patient Discharge Instructions Patient Printed Discharge Instructions: DI for Ear Pain-Adult Additional Instructions: Please call up the doctor we are referring you to and schedule a follow up appointment in the next 3 to 5 days. Come back to the ER immediately if your pain worsens or you have any other new or worsening concerns. Thank you for coming to the [facility] ER. We hope you feel better soon! Print Language: PARAGUAYAN - Post Discharge Activity
== END 2019-06-16 06:18 | disposition home or self-care (01) ==
LOC: JER 05:20
DX: H93.8X2 Other specified disorders of left ear (principal)
CPT/HCPCS: 99281-25

== ENCOUNTER 2020-10-30 02:27 | Emergency (ER) | payer OTHER ==
[2020-10-30 03:14] VITALS: TEMP 99; BMI 32.0
[2020-10-30] MEDS ORDERED: DOXYCYCLINE HYCLATE 100 MG CAPSULE PO ONE (03:50)
[2020-10-30 03:51] LABS: EPI CELLS 10 /uL (0-25.1); HYALINE CASTS 2 /uL (0-3.1); URINE APPEARANCE CLOUDY; URINE BACTERIA >9,000 /uL (0-1359); URINE BILIRUBIN 1+ (NEGATIVE); URINE COLOR ORANGE; URINE GLUCOSE (UA) NEGATIVE (NEGATIVE); URINE KETONE NEGATIVE (NEGATIVE); URINE LEUK ESTERASE 3+ (NEGATIVE); URINE NITRITE POSITIVE (NEGATIVE); URINE PROTEIN TRACE (NEGATIVE); URINE RBC 14 /uL (0-23.9); URINE WBC 327 /uL (0-25.8)
[2020-10-30 04:29] LABS: BASO % 0.6 % (0-2.0); EOS % 2.7 % (0-4.5); HEMATOCRIT 36.9 % (32.4-45.2); MCH 33.2 pg (25.7-33.7); MCHC 35.1 g/dl (32.0-36.0); MEAN CELL VOLUME 94.6 fl (80-96); MEAN PLT VOLUME 9.1 fl (7.5-11.1); MONO % 4.9 % (3.8-10.2); NEUT % 61.8 % (42.8-82.8); PLATELET COUNT 220 K/MM3 (134-434); RDW 12.3 % (11.6-15.6); WHITE BLOOD COUNT 8.1 K/mm3 (4.0-10.0)
[2020-10-30] MEDS ORDERED: ACETAMINOPHEN 1000 MG/100 ML VIAL (NON FORMULARY) IVPB ONE (04:32)
[2020-10-30] MEDS ORDERED: CEFTRIAXONE 1 GM/50 ML BAG ONE (04:33)
[2020-10-30] MEDS ORDERED: ACETAMINOPHEN INJECTION 100 ML IVPB ONE (04:33)
[2020-10-30 04:47] LABS: POTASSIUM 3.3 mmol/L (3.5-5.1)
[2020-10-30 04:51] LABS: CALCIUM 8.6 mg/dL (8.5-10.1)
[2020-10-30 04:52] LABS: ALBUMIN 3.7 g/dl (3.4-5.0); BLOOD UREA NITROGEN 9.9 mg/dL (7-18)
[2020-10-30 04:55] LABS: CREATININE 0.8 mg/dL (0.55-1.3)
[2020-10-30 04:56] LABS: BILIRUBIN,TOTAL 0.5 mg/dL (0.2-1)
[2020-10-30 04:57] LABS: TOT PROT 7.4 g/dl (6.4-8.2)
[2020-10-30 11:24] VITALS: BP 108/77; PULSE 63
== END 2020-10-30 11:35 | disposition home or self-care (01) ==
LOC: JER 02:27
PROC: 3E033GC Introduction of Other Therapeutic Substance into Peripheral Vein, Percutaneous Approach (ICD-10-PCS; principal; 2020-10-30)
DX: N39.0 Urinary tract infection, site not specified (principal)
CPT/HCPCS: 36415; 74177-TC; 76830-TC; 80053; 81003; 84703; 85025; 87086; 87186; 87491; 87591; 99285-25; J0131